=== PATIENT | male | born 1990 | race Caucasian/White ===

== ENCOUNTER 2022-02-22 11:09 | Outpatient (CLI) | payer OTHER, SELFPAY ==
[2022-02-22 13:56] LABS: Albumin* 4.3 g/dL (3.3-5.0)
[2022-02-22 13:59] LABS: Alanine Aminotransferase* 31 U/L (4-50); Alkaline Phosphatase* 49 U/L (40-150); Aspartate Amino Transferase* 32 U/L (12-35); Bilirubin Direct* 0.3 mg/dL (0.0-0.5); Bilirubin Total* 0.4 mg/dL (0.1-1.5); Total Protein* 6.9 g/dL (6.0-8.3)
== END 2022-02-22 11:10 | disposition home or self-care (01) ==
PROVIDERS: Visit Provider Family Medicine
DX: R42 Dizziness and giddiness (principal)
CPT/HCPCS: 80076; 84443

== ENCOUNTER 2024-09-30 10:08 | Emergency (ER) | payer OTHER, SELFPAY ==
--- OUTSIDE RECORDS SUMMARY | 2024-09-30 10:10 | XMS_ITS | Encounter Summary ---
Author Organization [facility] Address [address] [place] [address] Phone CareEverywhereSuppor [email or web address] Care Team Providers Care Advertising Assistant Name Role Phone Unavailable Primary Care Provider Unavailabl e Encounter Details Date Type Department Care Team (Late st Contact Info) Description 07/26/2024 Claims Summary [facility] [address] [place] [address] Provider, Claims Summary External, [address] [place] [address] Social History Tobacco Use Types Packs/Day Years Used Date Smoking Tobacco: Never Assessed Stress Answer Date Recorded Stress in your Life Not on file 06/25/2024 Dealing with Stress 3 06/25/2024 Sex and Gender Information Value Date Recorded Sex Assigned at Not on file Legal Sex Male 10:08 AM CHAIR MECHANIC Gender Identity Not on file Sexual Orientation Not on file documented as of this encounter Plan of Treatment Not on file documented as of this encounter Visit Diagnoses Not on filedocumented in this encounter
--- OUTSIDE RECORDS SUMMARY | 2024-09-30 10:10 | XMS_ITS | Encounter Summary ---
Author Organization [facility] Address [address] [place] [address] Phone CareEverywhereSuppor [email or web address] Care Team Providers Care Counter Former Name Role Phone Unavailable Primary Care Provider Unavailabl e Encounter Details Date Type Department Care Team (Late st Contact Info) Description 04/27/2024 Claims Summary [facility] [address] [place] [address] Provider, Claims Summary External, [address] [place] [address] Social History Tobacco Use Types Packs/Day Years Used Date Smoking Tobacco: Never Assessed Sex and Gender Information Value Date Recorded Sex Assigned at Not on file Legal Sex Male 10:08 AM EDI PROGRAMMER Gender Identity Not on file Sexual Orientation Not on file documented as of this encounter Plan of Treatment Not on file documented as of this encounter Visit Diagnoses Not on filedocumented in this encounter
--- OUTSIDE RECORDS SUMMARY | 2024-09-30 10:10 | XMS_ITS | Encounter Summary ---
Author Organization [facility] Address [address] [place] [address] Phone CareEverywhereSuppor [email or web address] Care Team Providers Care Community Relations Representative Name Role Phone Unavailable Primary Care Provider Unavailabl e Encounter Details Date Type Department Care Team (Late st Contact Info) Description 05/26/2024 Claims Summary [facility] [address] [place] [address] Provider, Claims Summary External, [address] [place] [address] Social History Tobacco Use Types Packs/Day Years Used Date Smoking Tobacco: Never Assessed Sex and Gender Information Value Date Recorded Sex Assigned at Not on file Legal Sex Male 10:08 AM BIOFUELS PLANT CONSTRUCTION WORKER Gender Identity Not on file Sexual Orientation Not on file documented as of this encounter Plan of Treatment Not on file documented as of this encounter Visit Diagnoses Not on filedocumented in this encounter
--- OUTSIDE RECORDS SUMMARY | 2024-09-30 10:10 | XMS_ITS | Encounter Summary ---
Author Organization [facility] Address [address] [place] [address] Phone CareEverywhereSuppor [email or web address] Care Team Providers Care Developmental Electronics Assembler Name Role Phone Unavailable Primary Care Provider Unavailabl e Encounter Details Date Type Department Care Team (Late st Contact Info) Description 03/16/2024 Claims Summary [facility] [address] [place] [address] Provider, Claims Summary External, [address] [place] [address] Social History Tobacco Use Types Packs/Day Years Used Date Smoking Tobacco: Never Assessed Sex and Gender Information Value Date Recorded Sex Assigned at Not on file Legal Sex Male 10:08 AM MORTUARY TECHNICIAN Gender Identity Not on file Sexual Orientation Not on file documented as of this encounter Plan of Treatment Not on file documented as of this encounter Visit Diagnoses Not on filedocumented in this encounter
--- OUTSIDE RECORDS SUMMARY | 2024-09-30 10:10 | XMS_ITS | Clinical Summary ---
Author Organization [facility] Address [address] [place] [address] Phone CareEverywhereSuppor [email or web address] Care Team Providers Care Skin Washer Name Role Phone Unavailable Primary Care Provider Unavailabl e Encounters Date Type Department Care Team Description 09/27/2024 Claims Summary [facility] [address] [place] [address] Provider, Claims Summary MD Delio 08/24/2024 Claims Summary [facility] [address] [place] [address] Provider, Claims Summary MD Delio 07/26/2024 Claims Summary [facility] [address] [place] [address] Provider, Claims Summary MD Delio from Last 3 Months Social History Tobacco Use Types Packs/Day Years Used Date Smoking Tobacco: Never Assessed Stress Answer Date Recorded Stress in your Life Not on file 06/25/2024 Dealing with Stress 3 06/25/2024 Sex and Gender Information Value Date Recorded Sex Assigned at Not on file Legal Sex Male 10:08 AM TOOL WORKER Gender Identity Not on file Sexual Orientation Not on file Plan of Treatment Not on file
--- OUTSIDE RECORDS SUMMARY | 2024-09-30 10:10 | XMS_ITS | Encounter Summary ---
Author Organization [facility] Address [address] [place] [address] Phone CareEverywhereSuppor [email or web address] Care Team Providers Care Transfer Station Operator Name Role Phone Unavailable Primary Care Provider Unavailabl e Encounter Details Date Type Department Care Team (Late st Contact Info) Description 06/29/2024 Claims Summary [facility] [address] [place] [address] Provider, Claims Summary External, [address] [place] [address] Social History Tobacco Use Types Packs/Day Years Used Date Smoking Tobacco: Never Assessed Stress Answer Date Recorded Stress in your Life Not on file 06/25/2024 Dealing with Stress 3 06/25/2024 Sex and Gender Information Value Date Recorded Sex Assigned at Not on file Legal Sex Male 10:08 AM TAXI DRIVER SUPERVISOR Gender Identity Not on file Sexual Orientation Not on file documented as of this encounter Plan of Treatment Not on file documented as of this encounter Visit Diagnoses Not on filedocumented in this encounter
--- OUTSIDE RECORDS SUMMARY | 2024-09-30 10:10 | XMS_ITS | Encounter Summary ---
Author Organization [facility] Address [address] [place] [address] Phone CareEverywhereSuppor [email or web address] Care Team Providers Care Financial Institution Vice President Name Role Phone Unavailable Primary Care Provider Unavailabl e Encounter Details Date Type Department Care Team (Late st Contact Info) Description 08/24/2024 Claims Summary [facility] [address] [place] [address] Provider, Claims Summary External, [address] [place] [address] Social History Tobacco Use Types Packs/Day Years Used Date Smoking Tobacco: Never Assessed Stress Answer Date Recorded Stress in your Life Not on file 06/25/2024 Dealing with Stress 3 06/25/2024 Sex and Gender Information Value Date Recorded Sex Assigned at Not on file Legal Sex Male 10:08 AM CERTIFIED PHARMACY TECHNICIAN Gender Identity Not on file Sexual Orientation Not on file documented as of this encounter Plan of Treatment Not on file documented as of this encounter Visit Diagnoses Not on filedocumented in this encounter
--- OUTSIDE RECORDS SUMMARY | 2024-09-30 10:10 | XMS_ITS | Encounter Summary ---
Author Organization [facility] Address [address] [place] [address] Phone CareEverywhereSuppor [email or web address] Care Team Providers Care Meteorology Teacher Name Role Phone Unavailable Primary Care Provider Unavailabl e Encounter Details Date Type Department Care Team (Late st Contact Info) Description 09/27/2024 Claims Summary [facility] [address] [place] [address] Provider, Claims Summary External, [address] [place] [address] Social History Tobacco Use Types Packs/Day Years Used Date Smoking Tobacco: Never Assessed Stress Answer Date Recorded Stress in your Life Not on file 06/25/2024 Dealing with Stress 3 06/25/2024 Sex and Gender Information Value Date Recorded Sex Assigned at Not on file Legal Sex Male 10:08 AM ANIMAL TRAINER SUPERVISOR Gender Identity Not on file Sexual Orientation Not on file documented as of this encounter Plan of Treatment Not on file documented as of this encounter Visit Diagnoses Not on filedocumented in this encounter
--- OUTSIDE RECORDS SUMMARY | 2024-09-30 10:10 | XMS_ITS | Clinical Summary ---
Author Organization [facility] Address [place], [place] [address] Care Team Providers Care Ambulette Driver Name Role Phone Clinic, No Pcp Or Primary Care Provider Unavaila ble Allergies No known active allergies Medications polyethylene glycoL (MIRALAX) 17 gram/dose powderIndication s:Rectal bleeding,Rectal fissure Take 17 g by mouth once daily. 1 jar 07/06/2017 Active Encounters Date Type Department Care Team Description 09/01/2024 8:31 AM PAPER PLATE MACHINE TENDER - 09/01/2024 9:14 AM PAPER PLATE MACHINE TENDER Emergency [facility] - [address] [address] Anabel London, Marlon Diaz MD External hemorrhoid (Primary Dx) Discharge Disposition: Home Self Care from Last 3 Months Family History Medical History Relation Name Comments Unknown Father Unknown Mother Relation Name Status Comments Father Mother Social History Tobacco Use Types Packs/Day Years Used Date Smoking Tobacco: Never Smokeless Tobacco: Current Chew Alcohol Use Standard Drinks/Week Comments Yes 4 (1 standard drink = 0.6 oz pur e alcohol) Sex and Gender Information Value Date Recorded Sex Assigned at Not on file Legal Sex Male 9:42 AM CDT Gender Identity Not on file Sexual Orientation Not on file Obstetrics History Last Filed Vital Signs Vital Sign Reading Time Taken Comments Blood Pressure 127/73 09/01/2024 8:41 AM PAPER PLATE MACHINE TENDER Pulse 58 09/01/2024 8:41 AM PAPER PLATE MACHINE TENDER Temperature 36.7 C (98.1 F) 09/01/2024 8:41 AM PAPER PLATE MACHINE TENDER Respiratory Rate 20 09/01/2024 8:41 AM PAPER PLATE MACHINE TENDER Oxygen Saturation 98% 09/01/2024 8:41 AM PAPER PLATE MACHINE TENDER Inhaled Oxygen Concentration - - Weight 113.4 kg (250 lb) 09/01/2024 8:41 AM PAPER PLATE MACHINE TENDER Height - - Body Mass Index - - Plan of Treatment Not on file Insurance [place] JIGNESH VALIENTE [id number] Care Teams Ambulette Driver Relationship Specialty Start Date End Date Clinic, No Pcp Or . PCP - General 07/06/17
--- OUTSIDE RECORDS SUMMARY | 2024-09-30 10:11 | XMS_ITS | Clinical Summary ---
Author Organization [facility] Address [address] [place] [address] Care Team Providers Care Meat Stocker Name Role Phone None, Pcp Primary Care Provider Unavailabl e Allergies No known active allergies Medications cetirizine (ZyrTEC ALLERGY) 10 MG tabletIndication s:Acute serous otitis media without rupture, left Take 1 tablet (10 mg total) by mouth every night 30 tablet 11/25/2023 Active Active Problems Problem Noted Date Diagnosed Date Acute serous otitis media without rupture, left 11/25/2023 Assessment & Plan (11/25/2023 4:32 PM CDT): Start Zyrtec 10 mg every night for at least 14 nights, may continue up to 30 nights. Immunizations Name Administration Dates Next Due DTP 12/28/1992,01/02/1992,1991 ,1991 DTaP 12/02/1996 Hep B, Adolescent or Pediatric 12/05/2003,2002,06/07/1999 Influenza, Trivalent, PF 07/05/2007 MMR 06/07/1999,11/09/1992 Meningococcal MCV4P 07/05/2007 OPV 12/02/1996,12/28/1992,1991 ,1991 Td 06/07/2003 Tdap 11/18/2011,07/05/2007 Social History Tobacco Use Types Packs/Day Years Used Date Smoking Tobacco: Never Smokeless Tobacco: Current Chew Tobacco Cessation:Ready to Q uit: No; Counseling Given: No Alcohol Use Standard Drinks/Week Comments Yes 0 (1 standard drink = 0.6 oz pur e alcohol) occational PHQ-2 Answer Date Recorded PHQ-9 Total Score 0 11/25/2023 Sex and Gender Information Value Date Recorded Sex Assigned at Not on file Legal Sex Male 7:52 PM CDT Gender Identity Not on file Sexual Orientation Not on file Last Filed Vital Signs Vital Sign Reading Time Taken Comments Blood Pressure 135/85 11/25/2023 4:03 PM CDT Pulse 88 11/25/2023 4:03 PM CDT Temperature 36.6 C (97.8 F) 11/25/2023 4:03 PM CDT Respiratory Rate 18 11/25/2023 4:03 PM CDT Oxygen Saturation 96% 11/25/2023 4:03 PM CDT Inhaled Oxygen Concentration - - Weight 152 kg (336 lb 1.6 oz) 11/25/2023 4:03 PM CDT Height 188 cm (6' 2) 11/25/2023 4:03 PM CDT Body Mass Index 43.15 11/25/2023 4:03 PM CDT Plan of Treatment Health Maintenance Due Date Last Done Comments DTaP,Tdap,and Td Vaccines (8 - Td or Tdap) 11/17/2021 11/18/2011, 07/05/2007, 06/07/2003, Additional history exists COVID-19 Vaccine ( season) 2024 Influenza Vaccine (#1) 2024 07/05/2007 HPV Vaccines Aged Out No longer eligi ble based on patient's age to complete this topic Pneumococcal Vaccine: Pediatrics (0 to 5 Years) and At-Risk Patients (6 to 49 Years) Aged Out No longer eligible based on patient's age to complete this topic Insurance [employer] IJGNESH [id number] Care Teams Meat Stocker Relationship Specialty Start Date End Date None, Pcp [address] [place] [phone] PCP - General 06/04/23
[2024-09-30 10:12] VITALS: BP 137/82; PULSE 63; RESP 18; TEMP 36.4; O2SAT 97; BMI 30.8
--- OUTSIDE RECORDS SUMMARY | 2024-09-30 11:16 | XMS_ITS | Clinical Summary ---
Author Organization [facility] Address [place], [place] [address] Care Team Providers Care Wool Fleece Grader Name Role Phone Clinic, No Pcp Or Primary Care Provider Unavaila ble Allergies No known active allergies Medications polyethylene glycoL (MIRALAX) 17 gram/dose powderIndication s:Rectal bleeding,Rectal fissure Take 17 g by mouth once daily. 1 jar 07/06/2017 Active Encounters Date Type Department Care Team Description 09/01/2024 8:31 AM TIME PIECE REPAIRER - 09/01/2024 9:14 AM TIME PIECE REPAIRER Emergency [facility] - [address] [address] Anabel London, Marlon Diaz MD External hemorrhoid [...] Comments Blood Pressure 127/73 09/01/2024 8:41 AM TIME PIECE REPAIRER Pulse 58 09/01/2024 8:41 AM TIME PIECE REPAIRER Temperature 36.7 C (98.1 F) 09/01/2024 8:41 AM TIME PIECE REPAIRER Respiratory Rate 20 09/01/2024 8:41 AM TIME PIECE REPAIRER Oxygen Saturation 98% 09/01/2024 8:41 AM TIME PIECE REPAIRER Inhaled Oxygen Concentration - - Weight 113.4 kg (250 lb) 09/01/2024 8:41 AM TIME PIECE REPAIRER Height - - Body Mass Index - - Plan of Treatment Not on file Insurance [place] JIGNESH VALIENTE [id number] Care Teams Wool Fleece Grader Relationship Specialty Start Date End Date Clinic, No Pcp Or . PCP - General 07/06/17
--- OUTSIDE RECORDS SUMMARY | 2024-09-30 11:16 | XMS_ITS | Clinical Summary ---
Author Organization [facility] Address [address] [place] [address] Phone CareEverywhereSuppor [email or web address] Care Team Providers Care Audit Associate Name Role Phone Unavailable Primary Care Provider Unavailabl e Encounters Date Type Department Care Team Description 09/27/2024 Claims Summary [facility] [address] [place] [address] Provider, Claims Summary MD Delio 08/24/2024 Claims Summary [facility] [address] [place] [address] Provider, Claims Summary MD Delio 07/26/2024 Claims Summary [facility] [address] [place] [address] Provider, Claims Summary MD Delio from Last 3 Months Social History Tobacco Use Types Packs/Day Years Used Date Smoking Tobacco: Never Assessed Stress Answer Date Recorded Stress in your Life Not on file 06/25/2024 Dealing with Stress 3 06/25/2024 Sex and Gender Information Value Date Recorded Sex Assigned at Not on file Legal Sex Male 10:08 AM ASSOCIATE MEDIA DIRECTOR Gender Identity Not on file Sexual Orientation Not on file Plan of Treatment Not on file
--- OUTSIDE RECORDS SUMMARY | 2024-09-30 11:16 | XMS_ITS | Encounter Summary ---
Author Organization [facility] Address [address] [place] [address] Phone CareEverywhereSuppor [email or web address] Care Team Providers Care Commercial Title Examiner Name Role Phone Unavailable Primary Care Provider Unavailabl e Encounter Details Date Type Department Care Team (Late st Contact Info) Description 09/27/2024 Claims Summary [facility] [address] [place] [address] Provider, Claims Summary External, [address] [place] [address] Social History Tobacco Use Types Packs/Day Years Used Date Smoking Tobacco: Never Assessed Stress Answer Date Recorded Stress in your Life Not on file 06/25/2024 Dealing with Stress 3 06/25/2024 Sex and Gender Information Value Date Recorded Sex Assigned at Not on file Legal Sex Male 10:08 AM PLASTICS PRODUCTION MACHINE OPERATOR Gender Identity Not on file Sexual Orientation Not on file documented as of this encounter Plan of Treatment Not on file documented as of this encounter Visit Diagnoses Not on filedocumented in this encounter
--- OUTSIDE RECORDS SUMMARY | 2024-09-30 11:16 | XMS_ITS | Clinical Summary ---
Author Organization [facility] Address [address] [place] [address] Care Team Providers Care Abalone Processor Name Role Phone None, Pcp Primary Care [...] age to complete this topic Insurance [employer] JIGNESH [id number] Care Teams Abalone Processor Relationship Specialty Start Date End Date None, Pcp [address] [place] [phone] PCP - General 06/04/23
--- OUTSIDE RECORDS SUMMARY | 2024-09-30 11:16 | XMS_ITS | Encounter Summary ---
Author Organization [facility] Address [address] [place] [address] Phone CareEverywhereSuppor [email or web address] Care Team Providers Care Mounter Automatic Name Role Phone Unavailable Primary Care Provider Unavailabl e Encounter Details Date Type Department Care Team (Late st Contact Info) Description 06/29/2024 Claims Summary [facility] [address] [place] [address] Provider, Claims Summary External, [address] [place] [address] Social History Tobacco Use Types Packs/Day Years Used Date Smoking Tobacco: Never Assessed Stress Answer Date Recorded Stress in your Life Not on file 06/25/2024 Dealing with Stress 3 06/25/2024 Sex and Gender Information Value Date Recorded Sex Assigned at Not on file Legal Sex Male 10:08 AM BUSINESS SERVICES REPRESENTATIVE Gender Identity Not on file Sexual Orientation Not on file documented as of this encounter Plan of Treatment Not on file documented as of this encounter Visit Diagnoses Not on filedocumented in this encounter
--- OUTSIDE RECORDS SUMMARY | 2024-09-30 11:16 | XMS_ITS | Encounter Summary ---
Author Organization [facility] Address [address] [place] [address] Phone CareEverywhereSuppor [email or web address] Care Team Providers Care Business Systems Developer Name Role Phone Unavailable Primary Care Provider Unavailabl e Encounter Details Date Type Department Care Team (Late st Contact Info) Description 03/16/2024 Claims Summary [facility] [address] [place] [address] Provider, Claims Summary External, [address] [place] [address] Social History Tobacco Use Types Packs/Day Years Used Date Smoking Tobacco: Never Assessed Sex and Gender Information Value Date Recorded Sex Assigned at Not on file Legal Sex Male 10:08 AM MUSSEL OPENER Gender Identity Not on file Sexual Orientation Not on file documented as of this encounter Plan of Treatment Not on file documented as of this encounter Visit Diagnoses Not on filedocumented in this encounter
--- OUTSIDE RECORDS SUMMARY | 2024-09-30 11:16 | XMS_ITS | Encounter Summary ---
Author Organization [facility] Address [address] [place] [address] Phone CareEverywhereSuppor [email or web address] Care Team Providers Care Railroad Engineer Name Role Phone Unavailable Primary Care Provider Unavailabl e Encounter Details Date Type Department Care Team (Late st Contact Info) Description 07/26/2024 Claims Summary [facility] [address] [place] [address] Provider, Claims Summary External, [address] [place] [address] Social History Tobacco Use Types Packs/Day Years Used Date Smoking Tobacco: Never Assessed Stress Answer Date Recorded Stress in your Life Not on file 06/25/2024 Dealing with Stress 3 06/25/2024 Sex and Gender Information Value Date Recorded Sex Assigned at Not on file Legal Sex Male 10:08 AM FRUIT AND VEGETABLE FACTORY WORKER Gender Identity Not on file Sexual Orientation Not on file documented as of this encounter Plan of Treatment Not on file documented as of this encounter Visit Diagnoses Not on filedocumented in this encounter
--- OUTSIDE RECORDS SUMMARY | 2024-09-30 11:16 | XMS_ITS | Encounter Summary ---
Author Organization [facility] Address [address] [place] [address] Phone CareEverywhereSuppor [email or web address] Care Team Providers Care Freight Flow Sales Leader Name Role Phone Unavailable Primary Care Provider Unavailabl e Encounter Details Date Type Department Care Team (Late st Contact Info) Description 05/26/2024 Claims Summary [facility] [address] [place] [address] Provider, Claims Summary External, [address] [place] [address] Social History Tobacco Use Types Packs/Day Years Used Date Smoking Tobacco: Never Assessed Sex and Gender Information Value Date Recorded Sex Assigned at Not on file Legal Sex Male 10:08 AM SOFTWARE PUBLISHER Gender Identity Not on file Sexual Orientation Not on file documented as of this encounter Plan of Treatment Not on file documented as of this encounter Visit Diagnoses Not on filedocumented in this encounter
--- OUTSIDE RECORDS SUMMARY | 2024-09-30 11:16 | XMS_ITS | Encounter Summary ---
Author Organization [facility] Address [address] [place] [address] Phone CareEverywhereSuppor [email or web address] Care Team Providers Care Vp Analysis Name Role Phone Unavailable Primary Care Provider Unavailabl e Encounter Details Date Type Department Care Team (Late st Contact Info) Description 08/24/2024 Claims Summary [facility] [address] [place] [address] Provider, Claims Summary External, [address] [place] [address] Social History Tobacco Use Types Packs/Day Years Used Date Smoking Tobacco: Never Assessed Stress Answer Date Recorded Stress in your Life Not on file 06/25/2024 Dealing with Stress 3 06/25/2024 Sex and Gender Information Value Date Recorded Sex Assigned at Not on file Legal Sex Male 10:08 AM PROCESS STRIPPER Gender Identity Not on file Sexual Orientation Not on file documented as of this encounter Plan of Treatment Not on file documented as of this encounter Visit Diagnoses Not on filedocumented in this encounter
--- OUTSIDE RECORDS SUMMARY | 2024-09-30 11:16 | XMS_ITS | Encounter Summary ---
Author Organization [facility] Address [address] [place] [address] Phone CareEverywhereSuppor [email or web address] Care Team Providers Care Exit Booth Agent Name Role Phone Unavailable Primary Care Provider Unavailabl e Encounter Details Date Type Department Care Team (Late st Contact Info) Description 04/27/2024 Claims Summary [facility] [address] [place] [address] Provider, Claims Summary External, [address] [place] [address] Social History Tobacco Use Types Packs/Day Years Used Date Smoking Tobacco: Never Assessed Sex and Gender Information Value Date Recorded Sex Assigned at Not on file Legal Sex Male 10:08 AM MERCHANDISE SHOPPER Gender Identity Not on file Sexual Orientation Not on file documented as of this encounter Plan of Treatment Not on file documented as of this encounter Visit Diagnoses Not on filedocumented in this encounter
[2024-09-30 11:42] LABS: Lactate* 0.6 mmol/L (0.5-1.9)
[2024-09-30 11:43] LABS: Basophils Absolute Auto 0.01 K/uL (0.00-0.30); Basophils Percent Auto 0.1 % (0.0-3.0); Eosinophils Percent Auto 3.8 % (0.0-7.0); Hematocrit 42.6 % (37.0-53.0); Hemoglobin* 14.4 gm/dL (13.5-17.5); Immature Granulocytes Abs Auto 0.01 K/uL (0.00-0.30); Immature Granulocytes Pct Auto 0.1 %; Lymphocytes Percent Auto 16.5 % (20-44); Mean Corpuscular HGB Conc 34 gm/dL (32-36); Mean Corpuscular Hemoglobin 30 pg (26-34); Mean Corpuscular Volume 88 fL (80-100); Monocytes Percent Auto 7.2 % (0.0-11.0); Neutrophils Percent Auto 72.3 % (42.0-72.0); Platelet Count* 264 K/uL (140-440); RDW Coefficient of Variation % 13.1 % (11.5-15.5); Red Blood Count 4.83 m/uL (4.30-5.90); White Blood Count* 7.96 K/uL (4.50-11.00)
[2024-09-30 11:45] LABS: Slide Review Reflex No
[2024-09-30 11:53] LABS: Mono Screen* POSITIVE (Negative)
[2024-09-30 11:57] LABS: Chloride* 100 mmol/L (96-114); Potassium* 5.7 mmol/L (3.6-5.1); Sodium* 138 mmol/L (135-149)
[2024-09-30 11:59] LABS: Albumin* 4.4 g/dL (3.3-5.0)
[2024-09-30 12:00] VITALS: BP 148/89; PULSE 60; RESP 16; O2SAT 99
[2024-09-30 12:00] LABS: Anion Gap 11 mEq/L (7-15); Carbon Dioxide* 27 mmol/L (20-32); Creatinine* 0.8 mg/dL (0.5-1.5); Estimated Glomerular Filt Rate 120 ml/min
[2024-09-30 12:01] LABS: Bilirubin Direct* 0.3 mg/dL (0.0-0.5); Bilirubin Total* 0.5 mg/dL (0.1-1.5); Blood Urea Nitrogen* 18 mg/dL (5-24); Calcium* 9.8 mg/dL (8.4-10.6); Glucose* 87 mg/dL (60-115); Total Protein* 7.8 g/dL (6.0-8.3)
[2024-09-30 12:02] LABS: Alanine Aminotransferase* 22 U/L (4-50); Alkaline Phosphatase* 57 U/L (40-150); Aspartate Amino Transferase* 21 U/L (12-35); D Dimer Quantitative* 2.69 ug/ml (0.00-0.50); Lipase* 69 U/L (23-300)
[2024-09-30 12:08] LABS: PCR FLU A Negative PCR FLU A (Negative); PCR FLU B Negative PCR FLU B (Negative); PCR RSV Negative PCR RSV (Negative); SARS PCR* Negative SARS-CoV-2 (Negative)
[2024-09-30 12:18] LABS: C Reactive Protein* 13.7 mg/dL (0.5-1.0)
--- NOTE | 2024-09-30 12:18 | ED.GENADULT ---
HPI - General Adult General Chief complaint: Rib Pain Stated complaint: lung/rib pain/cough Time Seen by Provider: 09/30/24 10:36 Source: patient Mode of arrival: ambulatory Limitations: no limitations History of Present Illness HPI narrative: 34-year-old male presenting today with chest pain. Patient states that the pain is located over the left lateral chest wall and radiates around his back up into his shoulder. He feels it when he takes a deep breath. Patient was in [place] the end of August until September 20. It was approximately 4 days later that the pain started. He was sitting watching football when it started. Again, he states that he feels mostly when he takes a deep breath. However, he had a night a couple of nights ago where he was in so much pain that he was crying throughout the night. Today the pain is a bit more tolerable. He denies fevers or chills. He has not really been coughing. He does have to clear his throat any has sputum 1st thing in the morning and sometimes throughout the day. The last 2 days he has noticed that there was blood in his sputum. He is not short of breath. Generally healthy, takes no medications. Related Data Home Medications ?Medication ?Instructions ?Recorded ?Confirmed acetaminophen 1,000 mg PO TID 09/30/24 09/30/24 ibuprofen 600 mg PO TID 09/30/24 09/30/24 Allergies Allergy/AdvReac Type Severity Reaction Status Date / Time No Known Drug Allergies Allergy Verified 09/30/24 10:26 Review of Systems Status of ROS: Reports: 10 or more systems reviewed and unremarkable except as noted in History and below Exam Narrative: Exam Narrative: Well-nourished well-developed patient in no acute distress. Alert and oriented. Answers questions appropriately. Mood and affect are appropriate. Thoughts are goal oriented and rational. No tangential or magical thinking noted. Patient speaks in full sentences without needing to catch his breath. HEENT: Normocephalic atraumatic. Pupils are equally round reactive to light. Extraocular muscles are intact. Conjunctivae are moist without any icterus noted. Moist mucous membranes. Posterior pharynx is normal. Neck is soft without any lymphadenopathy or thyromegaly. No masses are appreciated. Cardiovascular: Heart is regular rate and rhythm S1 and S2 are present without any murmurs. Lungs: Clear to auscultation bilaterally no wheezes rhonchi or rales are appreciated. Patient has discomfort over the left lateral chest wall and posterior left-sided chest wall when he takes a deep breath. Abdomen: Soft and nontender nondistended with normal bowel sounds. No left upper quadrant tenderness. Extremities: Bilateral lower extremities are without edema. Skin: Well perfused without any obvious rashes. No changes to the skin of the chest or back. Const: Vital Signs, click to edit/add: Vital Signs - 24 hr 09/30/24 10:12 09/30/24 12:00 Temperature 97.5 F L Pulse Rate [Right Pulse Oximeter] 63 60 Respiratory Rate 18 16 Blood Pressure [Ri t Upper Arm] 137/82 148/89 H Pulse Oximetry 97 99 Oxygen Delivery Me thod Room Air Room Air Course Course ED Course: Proceeded with blood work which included a CBC that was unremarkable. Chemistry showed normal sodium her potassium elevated at 5.7. Repeat draw was requested at this time. Remainder of chemistries were unremarkable. Normal lactate. CRP is elevated at 13.7. Triple swab was negative, Monospot is positive. D-dimer elevated at 2.69. Because of this we did proceed with a chest CT Repeat potassium Vital Signs Vital signs: Initial Vital Signs Temperature 97.5 F L 09/30/24 10:12 Temperature Source Temporal Artery Scan 09/30/24 10:12 Pulse Rate 63 09/30/24 10:12 Respiratory Rate 18 09/30/24 10:12 Blood Pressure 137/82 09/30/24 10:12 Blood Pressure Mean 100 09/30/24 10:12 Blood Pressure Position Sitting 09/30/24 10:12 Pulse Oximetry 97 09/30/24 10:12 Oxygen Delivery Method Room Air 09/30/24 10:12 Vital Signs Temperature 97.5 F L 09/30/24 10:12 Pulse Rate 63 09/30/24 10:12 Respiratory Rate 18 09/30/24 10:12 Blood Pressure 137/82 09/30/24 10:12 Pulse Oximetry 97 09/30/24 10:12 Oxygen Delivery Method Room Air 09/30/24 10:12 Temperature 97.5 F L 09/30/24 10:12 Pulse Rate 60 09/30/24 12:00 Respiratory Rate 16 09/30/24 12:00 Blood Pressure 148/89 H 09/30/24 12:00 Pulse Oximetry 99 09/30/24 12:00 Oxygen Delivery Method Room Air 09/30/24 12:00 Medical Decision Making Lab Data Labs: Lab Results 09/30/24 09/30/24 Range/Units 11:26 11:34 WBC 7.96 (4.50-11.00) K/uL RBC 4.83 (4.30-5.90) m/uL Hgb 14.4 (13.5-17.5) gm/dL Hct 42.6 (37.0-53.0) % MCV 88 (80-100) fL MCH 30 (26-34) pg MCHC 34 (32-36) gm/dL RDW Coeff of Nedra 13.1 (11.5-15.5) % Plt Count 264 (140-440) K/uL Neut % (Auto) 72.3 H (42.0-72.0) % Lymph % (Auto) 16.5 L (20-44) % [place] % (Auto) 7.2 (0.0-11.0) % Eos % (Auto) 3.8 (0.0-7.0) % Baso % (Auto) 0.1 (0.0-3.0) % Neut # (Auto) 5.80 (1.7-7.0) K/uL Lymph # (Auto) 1.30 (0.90-2.90) K/uL Fountain # (Auto) 0.60 (0.00-0.90) K/UL Eos # (Auto) 0.30 (0.00-0.50) K/uL Baso # (Auto) 0.01 (0.00-0.30) K/uL Abs Immat Gran (auto) 0.01 (0.00-0.30) K/uL Imm/Tot Granulo (auto) 0.1 % D-Dimer Quant (PE/DVT) 2.69 H (0.00-0.50) ug/ml Sodium 138 (135-149) mmol/L Potassium 5.7 H (3.6-5.1) mmol/L Chloride 100 (96-114) mmol/L Carbon Dioxide 27 (20-32) mmol/L Anion Gap 11 (7-15) mEq/L BUN 18 (5-24) mg/dL Creatinine 0.8 (0.5-1.5) mg/dL Estimated Creat Clear 152.70 Estimated GFR 120 ml/min Glucose 87 (60-115) mg/dL Lactate 0.6 (0.5-1.9) mmol/L Calcium 9.8 (8.4-10.6) mg/dL Total Bilirubin 0.5 (0.1-1.5) mg/dL Direct Bilirubin 0.3 (0.0-0.5) mg/dL AST 21 (12-35) U/L ALT 22 (4-50) U/L Alkaline Phosphatase 57 (40-150) U/L C-Reactive Protein 13.7 H (0.5-1.0) mg/dL Total Protein 7.8 (6.0-8.3) g/dL Albumin 4.4 (3.3-5.0) g/dL Lipase 69 (23-300) U/L SARS-CoV-2 (PCR) Negative SARS-CoV-2 (Negative) Monoscreen POSITIVE A (Negative) Influenza Type A (PCR) Negative PCR FLU A (Negative) Influenza Type B (PCR) Negative PCR FLU B (Negative) RSV (PCR) Negative PCR RSV (Negative) Discharge Plan Discharge Prescriptions: No Action acetaminophen [Tylenol] 1,000 mg PO TID ibuprofen 600 mg PO TID Follow Up/Referrals: Provider,Not a Local [Primary Care Provider] -
[2024-09-30 12:42] LABS: Potassium* 4.8 mmol/L (3.6-5.1)
--- NOTE | 2024-09-30 12:53 | ED.GENADULT ---
HPI - General Adult General Chief complaint: Rib Pain Stated complaint: lung/rib pain/cough Time Seen by Provider: 09/30/24 10:36 Source: patient Mode of arrival: ambulatory Limitations: no limitations History of Present Illness HPI narrative: 34-year-old male presenting today with left-sided chest pain. Patient was in [place] at the end of August and got home on the 20 of September. Approximately 4 days later he developed this pain that is only present if he takes a deep breath. However 2 nights ago he had a terrible night where he was crying because he was in so much pain. He denies feeling short of breath. He does not have a cough but he does have to clear his throat specially 1st thing in the morning and in the last 2 days he has noticed that his sputum has blood in it. He denies any fevers or chills. No rigors. He was able to exercise without difficulty when he got home from [place]. He denies any personal or family history of blood clots. Coughing, sneezing or taking deep breaths makes the pain stronger. Pain is located in the left chest wall radiates up the left back into the left shoulder. He was seen in Urgent Care an x-ray was done which was normal. He also was seen by chiropractor who stated that he had [address]. Unfortunately, even after adjustment he is still having significant discomfort. Related Data Home Medications ?Medication ?Instructions ?Recorded ?Confirmed acetaminophen 1,000 mg PO TID 09/30/24 09/30/24 ibuprofen 600 mg PO TID 09/30/24 09/30/24 Allergies Allergy/AdvReac Type Severity Reaction Status Date / Time No Known Drug Allergies Allergy Verified 09/30/24 12:36 Review of Systems Status of ROS: Reports: 10 or more systems reviewed and unremarkable except as noted in History and below Exam Narrative: Exam Narrative: Well-nourished well-developed patient in no acute distress. Alert and oriented. Answers questions appropriately. Mood and affect are appropriate. Thoughts are goal oriented and rational. No tangential or magical thinking noted. Patient speaks in full sentences without needing to catch his breath. HEENT: Normocephalic atraumatic. Pupils are equally round reactive to light. Extraocular muscles are intact. Conjunctivae are moist without any icterus noted. Moist mucous membranes. Posterior pharynx is normal. Neck is soft. Cardiovascular: Heart is regular rate and rhythm S1 and S2 are present without any murmurs. Lungs: Clear to auscultation bilaterally no wheezes rhonchi or rales are appreciated. Patient has discomfort with deep breathing. Abdomen: Soft and nontender nondistended with normal bowel sounds. No pain in the left upper quadrant. Extremities: Bilateral lower extremities are without edema. Skin: Well perfused without any obvious rashes. No skin changes of the chest wall or back. Const: Vital Signs, click to edit/add: Vital Signs - 24 hr 09/30/24 10:12 09/30/24 12:00 09/30/24 13:36 Temperature 97.5 F L Pulse Rate [Right Pulse Oximeter] 63 60 65 Respiratory Rate 18 16 16 Blood Pressure [Ri ght Upper Arm] 137/82 148/89 H 136/77 Pulse Oximetry 97 99 99 Oxygen Delivery Me thod Room Air Room Air Room Air Course Course ED Course: Blood work was for the most part unremarkable except he did have an elevated potassium of 5.7. This was repeated and was normal at 4.8. His CRP is elevated at 13.7 and his D-dimer was elevated at 2.69. Triple swab was negative, Monospot was positive. Proceeded with a chest CT PE protocol: No evidence of PE, however left-sided trace pleural effusion was present. A 2 small pulmonary nodules also present. Discussed results with patient. Patient does not smoke and has no personal history of cancer. Patient seems very unhappy with the results and did not believe that fluid in the lung could cause discomfort. I did my best to discuss the results with him, but again he did not seem very receptive to his results. Vital Signs Vital signs: Initial Vital Signs Temperature 97.5 F L 09/30/24 10:12 Temperature Source Temporal Artery Scan 09/30/24 10:12 Pulse Rate 63 09/30/24 10:12 Respiratory Rate 18 09/30/24 10:12 Blood Pressure 137/82 09/30/24 10:12 Blood Pressure Mean 100 09/30/24 10:12 Blood Pressure Position Sitting 09/30/24 10:12 Pulse Oximetry 97 09/30/24 10:12 Oxygen Delivery Method Room Air 09/30/24 10:12 Vital Signs Temperature 97.5 F L 09/30/24 10:12 Pulse Rate 63 09/30/24 10:12 Respiratory Rate 18 09/30/24 10:12 Blood Pressure 137/82 09/30/24 10:12 Pulse Oximetry 97 09/30/24 10:12 Oxygen Delivery Method Room Air 09/30/24 10:12 Temperature 97.5 F L 09/30/24 10:12 Pulse Rate 65 09/30/24 13:36 Respiratory Rate 16 09/30/24 13:36 Blood Pressure 136/77 09/30/24 13:36 Pulse Oximetry 99 09/30/24 13:36 Oxygen Delivery Method Room Air 09/30/24 13:36 Medical Decision Making MDM Narrative Medical decision making narrative: 34-year-old male pleural effusion unclear etiology. I offered Toradol for pain and anti-inflammatory purposes, patient refused stated that he would like to instead take ibuprofen. He tells me he is taking 600 mg 3 times a day. He stated he is also taking acetaminophen which is hurting his stomach. We discussed that likely it is the ibuprofen that is hurting his stomach. Patient was not convinced. Recommended that he start taking a daily omeprazole if he is to continue taking the ibuprofen. Lab Data Lab results reviewed: Yes I reviewed the patient's lab results Labs: Lab Results 09/30/24 09/30/24 09/30/24 Range/Units 11:26 11:34 12:20 WBC 7.96 (4.50-11.00) K/uL RBC 4.83 (4.30-5.90) m/uL Hgb 14.4 (13.5-17.5) gm/dL Hct 42.6 (37.0-53.0) % MCV 88 (80-100) fL MCH 30 (26-34) pg MCHC 34 (32-36) gm/dL RDW Coeff of Nedra 13.1 (11.5-15.5) % Plt Count 264 (140-440) K/uL Neut % (Auto) 72.3 H (42.0-72.0) % Lymph % (Auto) 16.5 L (20-44) % Campbell % (Auto) 7.2 (0.0-11.0) % Eos % (Auto) 3.8 (0.0-7.0) % Baso % (Auto) 0.1 (0.0-3.0) % Neut # (Auto) 5.80 (1.7-7.0) K/uL Lymph # (Auto) 1.30 (0.90-2.90) K/uL Campbell # (Auto) 0.60 (0.00-0.90) K/UL Eos # (Auto) 0.30 (0.00-0.50) K/uL Baso # (Auto) 0.01 (0.00-0.30) K/uL Abs Immat Gran (auto) 0.01 (0.00-0.30) K/uL Imm/Tot Granulo (auto) 0.1 % D-Dimer Quant (PE/DVT) 2.69 H (0.00-0.50) ug/ml Sodium 138 (135-149) mmol/L Potassium 5.7 H 4.8 (3.6-5.1) mmol/L Chloride 100 (96-114) mmol/L Carbon Dioxide 27 (20-32) mmol/L Anion Gap 11 (7-15) mEq/L BUN 18 (5-24) mg/dL Creatinine 0.8 (0.5-1.5) mg/dL Estimated Creat Clear 152.70 Estimated GFR 120 ml/min Glucose 87 (60-115) mg/dL Lactate 0.6 (0.5-1.9) mmol/L Calcium 9.8 (8.4-10.6) mg/dL Total Bilirubin 0.5 (0.1-1.5) mg/dL Direct Bilirubin 0.3 (0.0-0.5) mg/dL AST 21 (12-35) U/L ALT 22 (4-50) U/L Alkaline Phosphatase 57 (40-150) U/L C-Reactive Protein 13.7 H (0.5-1.0) mg/dL Total Protein 7.8 (6.0-8.3) g/dL Albumin 4.4 (3.3-5.0) g/dL Lipase 69 (23-300) U/L SARS-CoV-2 (PCR) Negative SARS-CoV-2 (Negative) Monoscreen POSITIVE A (Negative) Influenza Type A (PCR) Negative PCR FLU A (Negative) Influenza Type B (PCR) Negative PCR FLU B (Negative) RSV (PCR) Negative PCR RSV (Negative) Imaging Data CT scan - chest: Attestation: I have reviewed the pertinent imaging results. Radiologist's impression: CT of the chest with intravenous contrast (95 milliliters Isovue 370). Examination was performed utilizing a dedicated pulmonary angiography protocol. Reconstructed images/MIPS were created. FINDINGS: Airways: The trachea and central airways are clear. Lungs: No mass or consolidation. There is a 4 millimeter triangular subpleural solid nodule in the right lower lobe (5/99) and a 4 millimeter triangular solid nodule associated with the left major fissure (5/76). Mild atelectasis at the left lower lobe. Pleura: Trace left pleural effusion. Lymph nodes: No bulky thoracic lymphadenopathy. Heart: Normal size. Aorta: Normal caliber. Pulmonary artery: Normal caliber of the main pulmonary artery. No pulmonary embolism is detected. Chest wall: Normal. Bones: There are osseous degenerative changes. Mild anterior predominant vertebral body wedging most conspicuous at the midthoracic spine. Additional findings: Mild splenomegaly. IMPRESSION: 1. No pulmonary embolism is detected. 2. Trace left pleural effusion. 3. Mild splenomegaly. 4. Two 4 millimeter solid pulmonary nodules with morphologic characteristics of benign pulmonary lymph nodes. No follow-up imaging is required for a patient without a history of malignancy. Discharge Plan Discharge Clinical Impression: Pleural effusion Patient Disposition: Home, Self-Care Condition: Stable Additional Instructions: There is fluid in the left lung causing your discomfort. The reason for this fluid, at this time, is unclear. Continue ibuprofen 600 mg 3 times per day with food. Would also recommend starting a daily antacid such as omeprazole. This can be purchased [id number]. You need to follow-up in 5-7 days with a primary care provider. You will be sent home today with CD images of your CT scan. Please share these with your primary care provider. Return to the emergency department if you develop fevers, vomiting, or worsening shortness of breath. Prescriptions: No Action acetaminophen [Tylenol] 1,000 mg PO TID ibuprofen 600 mg PO TID Follow Up/Referrals: Provider,Not a Local [Primary Care Provider] - Stand Alone Forms: [facility] Info Instructions
[2024-09-30 13:36] VITALS: BP 136/77; PULSE 65; RESP 16; O2SAT 99
== END 2024-09-30 14:20 | disposition home or self-care (01) ==
PROVIDERS: Emergency Provider Family Medicine
DX: I26.99 Other pulmonary embolism without acute cor pulmonale (principal)
CPT/HCPCS: 36415; 71275; 80048; 80076; 83605; 83690; 84132; 85025; 85379; 86140; 86308; 87631; 99284; 99285; Q9967